=== PATIENT | female | born 1970 | race Caucasian/White ===

== ENCOUNTER 2018-05-17 18:00 | Emergency (ER) | payer OTHER ==
[~2018-05-17] VITALS: Ht 177.8 cm; Wt 70.3 kg
[2018-05-17 18:12] VITALS: Ht 177.8 cm; Wt 70.3 kg
[2018-05-17 22:16] VITALS: BP 119/71
== END 2018-05-17 22:16 | disposition home or self-care (01) ==
LOC: ED 18:00
DX: S13.4XXA Sprain of ligaments of cervical spine, initial encounter (principal); R51 Headache; V43.52XA Car driver injured in collision with other type car in traffic accident, initial encounter; Y93.I9 Activity, other involving external motion; Y92.413 State road as the place of occurrence of the external cause; Y99.8 Other external cause status
CPT/HCPCS: J1885